=== PATIENT | male | born 1940 | race Caucasian/White ===

== ENCOUNTER 2018-09-26 14:28 | Inpatient (IN) | payer MEDICARE, OTHER ==
[~2018-09-26] VITALS: Ht 186.7 cm; Wt 103.4 kg
[~2018-09-26 14:28] MED LIST: ASPIRIN LOW DOS81 M2 PO; COUMADIN5 MG PO; LANOXIN0.25 MG PO; MEDDOSEPAK OR; METO50TA52 PO; NO MEDS; PRAVACHOL20 MG PO; VITAMIN B-12500 MCG PO
--- NOTE | 2018-09-26 14:56 | NUR ---
PT TO ROOM FOR EXAM
[2018-09-26 15:20] LABS: HEMATOCRIT 44.3 % (39.0-50.0); HEMOGLOBIN 14.8 g/dl (14.0-18.0); IMMATURE GRANULOCYTES 0.4 % (0.0-5.0); MEAN CELL VOLUME 99.3 fL CALC (80.0-100.0); MEAN CORPUSCULAR HGB 33.2 pG CALC (26.0-32.0); MEAN CORPUSCULAR HGB CONC 33.4 g/L CALC (32.0-36.0); NEUT# 7.82 thou/uL (1.82-7.42); RED BLOOD COUNT 4.46 mill/uL (4.70-6.10); RED CELL DISTRI WIDTH 13.4 % (11.5-15.5)
--- NOTE | 2018-09-26 15:34 | NUR ---
PT RESTING QUIETLY, TEMP REMAINS 101.0 NOTIFIED.
[2018-09-26 15:37] LABS: ALBUMIN 4.7 g/dL (3.2-5.0); ALKALINE PHOSPHATASE 48 u/l (38-126); ANION GAP 20 (6-22 (CALC)); BILIRUBIN, TOTAL 0.8 mg/dL (0.0-1.4); BUN 20 mg/dL (8-23); BUN/CREATININE RATIO 18 (12-20 (CALC)); CARBON DIOXIDE 21 mmol/l (22-30); CHLORIDE 103 mmol/l (95-108); CREATININE 1.2 mg/dL (0.7-1.3); GFR 59 ML/MIN (>=60 (CALC)); GFR FOR AFR.AMER. > 60 ML/MIN (>=60 (CALC)); POTASSIUM 4.8 mmol/l (3.5-5.1); SGOT/AST 27 u/l (19-48); SODIUM 138 mmol/l (137-146); TOTAL PROTEIN 7.5 g/dL (6.3-8.2)
--- NOTE | 2018-09-26 16:18 | NUR ---
ADVISED OF LACTIC ACID 4.3
--- NOTE | 2018-09-26 16:30 | NUR ---
PT SITTING UP ON STRETCHER, WITH FLUIDS INFUSING, AT BEDSIDE, CALL LIGHT WITHIN REACH,
[2018-09-26 16:56] LABS: INTERNATIONAL NORMALIZED RATIO 5.9 RATIO (0.7-1.3); PROTHROMBIN TIME 61.1 SECONDS (9.0-12.5)
--- NOTE | 2018-09-26 17:16 | NUR ---
TEMP DOWN TO 98.9 STATES FEELS MUCH BETTER.
[2018-09-26] MEDS ORDERED: GLYBURID MCR1.5 MG PO (17:42)
[2018-09-26] MEDS ORDERED: JANUMET1 TAB PO (17:42)
--- NOTE | 2018-09-26 17:54 | NUR ---
FLUIDS INFUSING PER PROTOCOL. PT STATES FEELS MUCH BETTER, WANTS TO GO HOME, NOTIFIED. DR. HILTON WILL BE SPEAKING WITH PT ABOUT ADMISSION
--- NOTE | 2018-09-26 18:22 | NUR ---
PT ARRIVED TO [facility]2 VIA STRETCHER ACCOMPANIED BY ER NURSE. PT ALERT AND ORIENTED X3, AMBULATORY, AMBULATED WELL WITH STEADY GAIT FROM STRETCHER TO STANDING SCALE THEN TO BED. ORIENTED PT TO ROOM AND CALL LIGHT. VITALS OBTAINED, OFFERED TEDS, PT REFUSED. CALL LIGHT IN REACH.
[2018-09-26 18:24] VITALS: BP 136/54
--- NOTE | 2018-09-26 18:28 | NUR ---
REPORT GIVEN TO MED SURG NURSE FOR CONTINUATION OF CARE. PT TO FLOOR PER STRETCHER WITH 3RD BAG OF FLUIDS INFUSING.
[2018-09-26 18:35] LABS: URINE BILIRUBIN - DIPSTICK NEGATIVE (NEGATIVE); URINE BLOOD DIPSTICK MODERATE (NEGATIVE); URINE COLOR YELLOW; URINE GLUCOSE - DIPSTICK NEGATIVE (NEGATIVE); URINE KETONE NEGATIVE (NEGATIVE); URINE LEUK ESTERASE NEGATIVE (NEGATIVE); URINE NITRITE - DIPSTICK NEGATIVE (Negative); URINE PROTEIN - DIPSTICK NEGATIVE (NEG-TRACE); URINE SPECIFIC GRAVITY >=1.030; URINE UROBILINOGEN - DIPSTICK 0.2 E.U./dL (0.2)
[2018-09-26 18:45] LABS: URINE SQUAMOUS EPITHELIAL CELL FEW EPI/hpf (0-FEW)
--- NOTE | 2018-09-26 19:00 | NUR ---
REPORT RECEIVED FROM FERMIN RODRIGUEZ. PT RESTING IN BED NO SIGNS OR SYMPTOMS OF DISTRESS. PT DENIES ANY PAIN OR DISCOMFORT AT THIS TIME. SAFETY PRECAUTIONS IN PLACE. WILL CONTINUE TO MONITOR.
[2018-09-26 19:35] VITALS: BP 127/64
--- NOTE | 2018-09-26 20:57 | NUR ---
PT RESTING IN BED. ALERT AND ORIENTED. PT DENIES ANY PAIN OR DISCOMFORT AT THIS TIME. RESPIRATIONS SHALLOW/LABORED ON RA, LUNGS SOUNDS DIMINISHED THROUGH OUT, EXPIRATORY WHEEZES NOTED IN UPPER RT LUNG. PEDAL PULSES STRONG. TELE MONITOR IN PLACE. IV #20 LAC INFUSINF NS @ 125ML/HR, SITE APPEARS HEALTHY. PT ORIENTED TO ROOM. PT DENIES ANY NEEDS AT THIS TIME. SAFETY PRECAUTIONS IN PLACE. CALL LIGHT WITHIN REACH. WILL CONTINUE TO MONITOR.
--- NOTE | 2018-09-26 22:22 | NUR ---
CLINICAL SUPPORT TEAM CALLED BY ED FOR HEART RATE OF 220. PT RESTING IN BED ALERT AND ORIENTED, SHORT OF BREATH. VITALS OBTAINED BP 196/78, PULSE 111, O2 88. PT DENIES ANY PAIN AT THIS TIME. O2 VIA NC @ 2L APPLIED.RT AT BEDSIDE OBTAINING EKG. MARTHA FIGUEROA RN, IN TO ASSESS PT FOR DIP TUBE ASSEMBLER MACHINE CALLED. MAG LEVEL ORDERED AT THIS TIME. WILL CALL MD FOR FURTHER ORDERS.
--- NOTE | 2018-09-26 22:30 | NUR ---
ATEMPTED TO CALL DR. VELEZ, NO ANSWER, LEFT A MESSAGE ON VOICEMAIL.
--- NOTE | 2018-09-26 22:41 | NUR ---
ATTEMPTED TO CALL DR. VELEZ AFTER 10 MINUTES OF NOT HEARING BACK FROM HIM, LEFT ANOTHER MESSAGE ON VOICE MAIL.
--- NOTE | 2018-09-26 23:18 | NUR ---
DR VELEZ RETURNED CALL. UPDATED MD ON PT STATUS. INFORMED MD OF LAST DOSE OF METOPROLOL SUCCINATE 50 MG/TAB, RESULTS OF EKG, COMMUNICATIONS AGENT CALLED, LAST SET OF VS, MAG RESULTS, PT SOB AND DENIES ANY PAIN, ORDERS RECEIVED TO TRANSFER PT TO ICU. DR. VELEZ CALL TRANSFERED TO ICU FOR FURTHER TRANSFER ORDERS.
[2018-09-26 23:35] VITALS: BP 148/62
[2018-09-26 23:45] VITALS: BP 156/73
[2018-09-27] VITALS (35 sets, daily range): BP systolic 91–175; BP diastolic 39–95
--- NOTE | 2018-09-27 00:04 | NUR ---
PT ARRIVED TO ICU UNIT AT 2330 VIA BED WITH 2 MEDSUR STAFF. IMMEDIATELY CONNECTED TO CONTINUOUS TELEMETRY MONITORING. VS RECOREDED. AFIB WITH RATE OF 101; TEMPERATURE AT 103.0. PT HAS FACIAL FLUSHING WITH SOB; LUNGS ARE CLEAR AND TRACE EDEMA TO BILATERAL ANKLES. DR. VELEZ NOTIFED OF PT CONDITION AT THIS TIME. NEW ORDERS RECEIVED. IV SITE TO LAC OCCLUDED AND 2 NEW SITES PLACED. PT DENIES PAIN CURRENTLY. ON OXYGEN AT 4L VIA NC; 95%. ORIENTED TO ROOM AND CALL LIGHT SYSTEM.
--- NOTE | 2018-09-27 00:10 | NUR ---
NURSE OFFERED TO NOTIFY ANY FAMILY OF TRANSPORT FROM [facility] TO ICU UNIT; PT STATES THAT HIS IS ALREADY AWARE AND UPDATED BY HIMSELF.
--- NOTE | 2018-09-27 01:04 | NUR ---
AMIODARONE BOLUS ADMINSTERED AND PT TOLERATED WELL; AMIODARONE DRIP NOW INFUSING AT 1MG/MIN. MAGNESIUM INFUSING PER ORDERS WITHOUT DIFFICULTY. TYLENOL GIVEN AND F/U TEMP IS 101.8; PT NOW DIAPHORETIC, BUT BREATHING HAS IMPROVED. CONTINUES TO DENY PAIN. DOES SEEM RESTLESS AND FREQUENTLY ATTEMPTING TO REPOSITION SELF ONTO SIDE OF BED, BUT TOO WEAK TO HOLD POSITION AND LAYS BACK DOWN INTO SEMI FOWLERS. CURRENTLY AFIB AT A RATE OF 103; WILL CONTINUE TO MONITOR.
--- NOTE | 2018-09-27 01:59 | NUR ---
MAGNESIUM COMPLETED AND IV SITE FLUSHED; BOTH SITES APPEAR HEALTHY. OXYGEN TITRATED DOWN TO 2L VIA NC AND CURRENTLY 95%. AMIODARONE DRIP INFUSING WITHOUT DIFFICULTY. TEMPERATURE 100.9. PT IS LESS RESTLESS; APPEARS MORE COMFORTABLE. NO REQUESTS OR CONCERS AT THIS TIME.
--- NOTE | 2018-09-27 04:59 | NUR ---
TYLENOL GIVEN AT THIS TIME FOR TEMPERATURE OF 101.7. NO REQUESTS OR CONCERNS AT THIS TIME. BP 121/61 HR 82; REMAINS AFIB.
--- NOTE | 2018-09-27 05:36 | NUR ---
PT FOUND AMBULATING IN ROOM WITH UNSTEADY GAIT AND IV LINES STRETCHED TAUNT AND IV SITE DISLODGED. PT STATES THAT HE WAS ATTEMPTING TO REACH BSC TO VOID; URINARY INCONTINENCE ON FLOOR. ASSISTED TO BSC, HYGEINE PROVIDED, AND LINENS CHANGED. DRIED FECES NOTED TO BUTTOCK. DRIP MOVED TO IV SITE IN LAC AND NOW INFUSING. PT ASSISTED BACK TO BED AND REORIENTED TO CALL LIGHT SYSTEM. STATES UNDERSTANDING.
--- NOTE | 2018-09-27 06:05 | NUR ---
LAB AT BEDSIDE.
--- NOTE | 2018-09-27 06:08 | NUR ---
TRANSPORTED TO CT VIA WHEELCHAIR; OFF UNIT.
[2018-09-27 06:10] LABS: IMMATURE GRANULOCYTES 0.4 % (0.0-5.0); MEAN CELL VOLUME 98.9 fL CALC (80.0-100.0); MEAN CORPUSCULAR HGB 33.9 pG CALC (26.0-32.0); MEAN CORPUSCULAR HGB CONC 34.2 g/L CALC (32.0-36.0); NEUT# 6.43 thou/uL (1.82-7.42); RED BLOOD COUNT 3.75 mill/uL (4.70-6.10); RED CELL DISTRI WIDTH 13.6 % (11.5-15.5)
[2018-09-27 06:14] LABS: HEMATOCRIT 37.1 % (39.0-50.0); HEMOGLOBIN 12.7 g/dl (14.0-18.0)
--- NOTE | 2018-09-27 06:15 | NUR ---
PT BACK TO UNIT AND RECONNECTED TO ALL ATTACHMENTS.
[2018-09-27 06:32] LABS: ALKALINE PHOSPHATASE 40 u/l (38-126); AMYLASE < 30 u/l (30-110); ANION GAP 13 (6-22 (CALC)); BILIRUBIN, TOTAL 0.9 mg/dL (0.0-1.4); BUN 15 mg/dL (8-23); BUN/CREATININE RATIO 17 (12-20 (CALC)); CARBON DIOXIDE 22 mmol/l (22-30); CHLORIDE 107 mmol/l (95-108); CREATININE 0.9 mg/dL (0.7-1.3); GFR > 60 ML/MIN (>=60 (CALC)); GFR FOR AFR.AMER. > 60 ML/MIN (>=60 (CALC)); LIPASE 255 u/l (23-300); SGOT/AST 20 u/l (19-48); SODIUM 137 mmol/l (137-146)
[2018-09-27 06:42] LABS: ALBUMIN 3.3 g/dL (3.2-5.0); MAGNESIUM 1.8 mg/dL (1.6-2.3); TOTAL PROTEIN 5.8 g/dL (6.3-8.2)
--- NOTE | 2018-09-27 06:55 | NUR ---
RECVD REPORT FROM CASSANDRA KUHN AT START OF SHIFT.
--- NOTE | 2018-09-27 06:55 | NUR ---
AMIODARONE DRIP TITRATED FROM 1.0 TO 0.5MG/MIN AFTER 6 HOURS. TEMPERATURE REMAINS 101.3. PT RESTING COMFORTABLY IN SEMI FOWLERS POSITION WITH NO NEEDS CURRENTLY.
--- NOTE | 2018-09-27 07:45 | NUR ---
PT SITTING UP IN BED, EATING BREAKFAST.
--- NOTE | 2018-09-27 08:00 | NUR ---
REQUESTED MOTRIN FROM [facility]SU, NOT IN ICU PYXIS
--- NOTE | 2018-09-27 08:27 | NUR ---
PT CURLED ON SIDE, "TRYING TO GO BACK TO SLEEP". BED ALARM ON.
--- NOTE | 2018-09-27 09:00 | NUR ---
TELE ALARMED FOR RR IN 70S-80S. PT WAS DIAPHORETIC, SWEAT DRIPPING OF PT. PT WOULD NOT WEAR OXI MASK. AFTER CONTINUED TACHYPNEA, PT PLACED ON NRB MASK. PTS RR SLOWED TO 30S.
--- NOTE | 2018-09-27 09:04 | NUR ---
KIMBERLY ARREOLA, NOTIFIED OF PTS STATUS. NEW ORDERS PLACED.
--- NOTE | 2018-09-27 09:13 | NUR ---
KIMBERLY ARREOLA, NOTIFIED OF EKG RESULTS OF AFIB RVR.
--- NOTE | 2018-09-27 09:18 | NUR ---
RT @BEDSIDE FOR JOANA
--- NOTE | 2018-09-27 09:20 | NUR ---
PORT XR COMPLETED.
--- NOTE | 2018-09-27 09:26 | NUR ---
LAB @BEDSIDE FOR STAT TROPONIN
[2018-09-27 10:00] LABS: INTERNATIONAL NORMALIZED RATIO 1.9 RATIO (0.7-1.3); PROTHROMBIN TIME 20.1 SECONDS (9.0-12.5)
--- NOTE | 2018-09-27 10:16 | NUR ---
TO ROOM, EMOTIONALLY UPSET BC NOONE NOTIFIED HER OF STATUS CHANGE.
--- NOTE | 2018-09-27 10:34 | NUR ---
EDUCATED & EDUCATED ON PTS STATUS. BROUGHT ACTUAL MED LIST, COPY MADE, CONSULT PLACED WITH PHARMACY.
[2018-09-27] MEDS ORDERED: LEVOTHYROXIN25 MC1 PO (10:51)
--- NOTE | 2018-09-27 11:44 | NUR ---
PT SITTING UP IN BED, EATING LUNCH. PT REMOVED FROM NRB, PLACED BACK ON 2L NC. ORDERED TRAY FOR @BEDSIDE.
--- NOTE | 2018-09-27 11:48 | NUR ---
DR VELEZ NOTIFIED OF EPISODE THIS AM WITH TACHYPENIA & DIAPHORESIS.
--- NOTE | 2018-09-27 11:59 | NUR ---
RBVO FROM DR VELEZ ON UNIT TO CANCEL LAST TROPONIN SINCE STAT DRAW EARLIER THIS AM.
--- NOTE | 2018-09-27 12:13 | NUR ---
DR VELEZ @BEDSIDE WITH PT/.
--- NOTE | 2018-09-27 12:56 | NUR ---
SPUTUM SAMPLE COLLECTED. LAB NOTIFIED FOR HAND FLESHER
--- NOTE | 2018-09-27 14:00 | NUR ---
PT SLEEPING IN BED. 94-95% ON 2L NC. NO S/S OF DISTRESS. CALLBELL W/IN REACH.
--- NOTE | 2018-09-27 16:17 | NUR ---
@BEDSIDE. PT TALKATIVE W/OUT SOB. AWAKE & ALERT. NO S/S OF DISTRESS.
--- NOTE | 2018-09-27 16:42 | NUR ---
PT SITTING UP IN BED, GIVING SELF BATH. IN ROOM. PT REFUSED HELP. ALSO BRUSHED TEETH & HAIR. LINENS & GOWN CHANGED. PT A&Ox4. AFEBRILE.
--- NOTE | 2018-09-27 17:42 | NUR ---
PT SITTING UP ON SIDE OF BED, EATING DINNER. REPOSITIONED SELF. @BEDSIDE. PT JOKING/LAUGHING WITH STAFF.
--- NOTE | 2018-09-27 18:31 | NUR ---
PT C/O CHILLS. TEMP TAKEN OR 98.9 TYM. MOTRIN GIVEN PRECAUTION.
--- NOTE | 2018-09-27 19:00 | NUR ---
BEDSIDE REPORT RECEIVED FROM CASSANDRA RUTLEDGE. PT RESTING IN BED SEMI FOWLERS; ALERT AND ORIENTED. DENIES PAIN. RESPIRATIONS EVEN AND UNLABORED ON OXYGEN. PLAN OF CARE REVIEWED. PT ENCOURAGED TO VERBALIZE CONCERNS. STATES UNDERSTANDING. SAFETY MEASURES IN PLACE. CALL LIGHT WITHIN REACH.
--- NOTE | 2018-09-27 19:45 | NUR ---
IV SITE TO LAC LEAKING; IV D/C'D AND NEW SITE PLACED TO RAC. LINENS CHANGED. ASSESSMENT COMPLETE.
--- NOTE | 2018-09-27 21:00 | NUR ---
PT HAS A NEED FOR SECOND LINE; IV ATTEMPTED BY 2 NURSES WITHOUT SUCCESS.
--- NOTE | 2018-09-27 21:48 | NUR ---
PT GOT OUT OF BED WITHOUT CALLING TO REACH URINAL WITH INSTEADY GAIT. URINAL PLACED WITHIN REACH AND PT EDUCATED ON SAFETY AND USING CALL LIGHT WHICH WAS WITHIN HIS REACH. PT STATES UNDERSTANDING. BED ALARM PLACED. ZITHROMAX INFUSING AT THIS TIME.
--- NOTE | 2018-09-27 22:24 | NUR ---
PT RESTING IN BED WITH EYES CLOSED; OPENS EYES SPONTANEOUSLY. TEMPERATURE AFTER TYLENOL 100.9. ROCEPHIN INFUSING AT THIS TIME.
--- NOTE | 2018-09-27 23:53 | NUR ---
TEMPERATURE 98.2; PT WITH WARM MOIST SKIN. VOIDING CLEAR YELLOW URINE IN BEDSIDE URINAL. AMIDARONE DRIP INFUSING WIHTOUT DIFFICULTY; IV SITE TO RAC APPEARS HEALTHY. AFIB WITH RATE OF 62 AT THIS TIME. SAFETY MEASURES IN PLACE. CALL LIGHT WITHIN REACH.
[2018-09-28] VITALS (23 sets, daily range): BP systolic 112–170; BP diastolic 24–96
--- NOTE | 2018-09-28 01:53 | NUR ---
PT ASLEEP AT THIS TIME WITH NO SIGNS OF DISTRESS. RESPIRATIONS EVEN AND UNLABORED ON OXYGEN. AMIODARONE DRIP DISCONTINUED PER PROTOCOL. PT AFIB RATE OF 74.
--- NOTE | 2018-09-28 04:11 | NUR ---
NO CHANGES IN CONDITION; PT IS STABLE AT THIS TIME. IV FLUIDS INFUSING WITHOUT DIFFICULTY. EXPIRATORY WHEEZES THROUGHOUT LUNGS; BREATHING SOUNDS WET. OXYGEN SATURATION 95% ON 2L OF OXYGEN. NO FURTHER ATTEMPTS TO GET OUT OF BED UNASSISTED.
--- NOTE | 2018-09-28 04:50 | NUR ---
LAB AT BEDSIDE.
[2018-09-28 05:20] LABS: HEMOGLOBIN 13.4 g/dl (14.0-18.0); IMMATURE GRANULOCYTES 0.7 % (0.0-5.0); MEAN CORPUSCULAR HGB 33.3 pG CALC (26.0-32.0); MEAN CORPUSCULAR HGB CONC 32.7 g/L CALC (32.0-36.0); NEUT# 5.16 thou/uL (1.82-7.42); RED BLOOD COUNT 4.02 mill/uL (4.70-6.10); RED CELL DISTRI WIDTH 13.9 % (11.5-15.5)
[2018-09-28 05:36] LABS: ALBUMIN 3.6 g/dL (3.2-5.0); ALKALINE PHOSPHATASE 42 u/l (38-126); ANION GAP 11 (6-22 (CALC)); BILIRUBIN, TOTAL 0.7 mg/dL (0.0-1.4); BUN 15 mg/dL (8-23); BUN/CREATININE RATIO 15 (12-20 (CALC)); CARBON DIOXIDE 26 mmol/l (22-30); CHLORIDE 109 mmol/l (95-108); GFR > 60 ML/MIN (>=60 (CALC)); GFR FOR AFR.AMER. > 60 ML/MIN (>=60 (CALC)); POTASSIUM 3.8 mmol/l (3.5-5.1); SGOT/AST 24 u/l (19-48); SODIUM 142 mmol/l (137-146); TOTAL PROTEIN 6.2 g/dL (6.3-8.2)
--- NOTE | 2018-09-28 06:28 | NUR ---
MOTRIN GIVEN WITH AM MEDS FOR TEMP OF 99.8.
--- NOTE | 2018-09-28 07:45 | NUR ---
ASSESSMENT IS COMPLETED: IV SITE IS FREE FROM REDNESS OR EDEMA. HR IS REG,PULSES ARE STRONG X4, ABD IS SOFT WITH ACTIVE BS. BREATH SOUNDS ARE CLEAR,BILATERALLY WITH EXPIRATORY WHEEZING. CONTINUE TO OBSERVE AND MONITOR,.
--- NOTE | 2018-09-28 11:44 | NUR ---
FAMILY IN THE ROOM. IV SITE IS FREE FROM REDNESS OR EDEMA. CONTINUE TO OSBERVE AND MONITOR.
--- NOTE | 2018-09-28 12:15 | NUR ---
PT IS VISITING WITH SPOUSE. NO DISTRESS NOTED. IV SITE IS FREE FROM REDNESS OR EDEMA. IN TO VISIT WITH PT. CONTINUE TO OSBERVE AND MONITOR.
--- NOTE | 2018-09-28 14:00 | NUR ---
PT WAS GETTING WASHED UP THIS AFTERNOON. NO DISTRESS NOTED.
--- NOTE | 2018-09-28 16:00 | NUR ---
PT IS VISITING WITH FAMILY NO DISTRESS NOTED., IV SITE IS FREE FROM REDNESS OR EDEMA. CONTINUE TO OBSERVE AND MONITOR.
--- NOTE | 2018-09-28 17:42 | NUR ---
WILL SEE PT TOMORROW.
--- NOTE | 2018-09-28 18:00 | NUR ---
PT IS RELAXING IN BED WITH NO DISTRESS NOTED. IV SITE IS FREE FROM REDNESS OR EDEMA.
--- NOTE | 2018-09-28 18:50 | NUR ---
BEDSIDE REPORT RECEIVED FROM FERMIN GARCÍA. PT RESTING IN BED SEMI FOWLERS WATCHING TV; ALERT AND ORIENTED. DENIES PAIN. RESPIRATIONS EVEN AND UNLABORED ON OXYGEN 2L VIA NC. PLAN OF CARE REVIEWED. PT ENCOURAGED TO VERBALIZE CONCERNS. STATES UNDERSTANDING. COMMENTED ON DESIRE TO GO HOME. SAFETY MEASURES IN PLACE. CALL LIGHT WITHIN REACH.
--- NOTE | 2018-09-28 19:20 | NUR ---
ASSESSMENT COMPLETE. LUNGS SOUNDS CLEAR WITH TRACE EDEMA TO BLE. ABDOMEN DISTENDED AND SOFT; REPORTS NO BOWEL MOVEMENT SINCE ADMISSION. VOIDING CLEAR YELLOW URINE IN URINAL.
--- NOTE | 2018-09-28 21:40 | NUR ---
HS MEDICATIONS ADMINISTERED. ROCEPHIN INFUSING WITHOUT DIFFICULTY; IV SITE APPEARS HEALTHY. BLOOD SUGAR 154; GLYNASE PO ADMINISTERED AND SNACK PROVIDED. PT HAS NO OTHER CONCERNS AT THIS TIME. AFEBRILE.
--- NOTE | 2018-09-28 23:00 | NUR ---
PT RESTING WITH EYES CLOSED; AWAKENS SPONTANEOUSLY. VERBALIZES CONCERNS ABOUT HIS COUMADIN DOSING; DISCUSSED WITH PT AND ANSWERED QUESTIONS TO SATISFACTION. NO OTHER REQUESTS OR CONCERNS AT THIS TIME.
[2018-09-29] VITALS (29 sets, daily range): BP systolic 125–174; BP diastolic 57–94
--- NOTE | 2018-09-29 01:00 | NUR ---
AFEBRILE TEMPERATURE 98.8. NO CHANGES IN CONDITION SO FAR THIS SHIFT. SAFETY MEASURES IN PLACE INCLUDING BED ALARM. CALL LIGHT WITHIN REACH.
--- NOTE | 2018-09-29 02:28 | NUR ---
PT REPOSITIONING SELF IN BED AND BLOWING NOSE; HEART INCREASED TO THE 130'S TEMPORARILY AND THEN DECREASED BACK INTO THE 90'S. PT IS SOB WITH OXYGEN IN PLACE. ENCOURAGED TO REST AND RELAX. HEART RATE CURRENTLY 86.
--- NOTE | 2018-09-29 04:09 | NUR ---
HEART RATE ON MONITOR UP TO 190'S; PT HAD JUST USED URINAL AND WAS TACHYPNEIC AND ANXIOUS. RELAXATION AND BREATHING TECHNIQUES ENCOURAGED. PT IS CALMER AND HEART RATE IS NOW IN THE 130'S AFIB. TEMPERATURE 100.9; WILL CONTINUE TO MONITOR.
--- NOTE | 2018-09-29 04:34 | NUR ---
TYLENOL GIVEN FOR TEMP OF 101.6. PT SITTING UP IN BED ANXIOUS WITH SOB; OXYGEN TITRATED TO 3L FOR COMFORT AND CONTINUING TO ENCOURAGE BREATHING TECHNIQUES. PT ASKING QUESTIONS ABOUT PLAN OF CARE; QUESTIONS ANSWERED TO SATISFACTION AND PT ENCOURAGED TO RELAX. HEART RATE CURRENTLY 120S-140'S. LUNG SOUNDS ARE CLEAR. WILL REASSESS.
--- NOTE | 2018-09-29 04:59 | NUR ---
AMIODARONE DRIP STARTED FOR SUSTAINED SYMPTOMATIC TACHYCARDIA AND RUNS OF VTACH. HEART RATE CURRENTLY IN THE 140'S UP TO THE 180'S. TEMPERATURE NOW 102.4 AFTER TYLENOL. PT IS VERY ANXIOUS AND STATES THAT HE FEELS CLAUSTROPHOBIC AND REQUESTS TO AMBULATE OUTSIDE OF ROOM. SKIN IS FLUSHED; HOT AND MOIST. BLOOD PRESSURE ALSO ELEVATED.
[2018-09-29 05:56] LABS: HEMATOCRIT 38.9 % (39.0-50.0); HEMOGLOBIN 13.2 g/dl (14.0-18.0); IMMATURE GRANULOCYTES 0.7 % (0.0-5.0); MEAN CELL VOLUME 100.5 fL CALC (80.0-100.0); MEAN CORPUSCULAR HGB 34.1 pG CALC (26.0-32.0); MEAN CORPUSCULAR HGB CONC 33.9 g/L CALC (32.0-36.0); NEUT# 5.94 thou/uL (1.82-7.42); RED BLOOD COUNT 3.87 mill/uL (4.70-6.10); RED CELL DISTRI WIDTH 13.5 % (11.5-15.5)
[2018-09-29 05:58] LABS: ALBUMIN 3.6 g/dL (3.2-5.0); ALKALINE PHOSPHATASE 58 u/l (38-126); ANION GAP 14 (6-22 (CALC)); BILIRUBIN, TOTAL 0.8 mg/dL (0.0-1.4); BUN 16 mg/dL (8-23); BUN/CREATININE RATIO 19 (12-20 (CALC)); CARBON DIOXIDE 21 mmol/l (22-30); CHLORIDE 109 mmol/l (95-108); CREATININE 0.9 mg/dL (0.7-1.3); GFR > 60 ML/MIN (>=60 (CALC)); GFR FOR AFR.AMER. > 60 ML/MIN (>=60 (CALC)); MAGNESIUM 1.8 mg/dL (1.6-2.3); SGOT/AST 30 u/l (19-48); SODIUM 140 mmol/l (137-146); TOTAL PROTEIN 6.4 g/dL (6.3-8.2)
--- NOTE | 2018-09-29 05:58 | NUR ---
PT VERY DIAPHORETC WITH WET GOWN AND LINEN; TEMP DOWN TO 101.0. LINENS CHANGED AND HYGEINE PROVIDED. PT MUCH CALMER NOW; SITTING UP IN BED ON CELL PHONE. STATES THAT HE JUST FEELS LOUSY. HEART RATE NOW 112; BLOOD PRESSURE IMPROVED.
--- NOTE | 2018-09-29 06:35 | NUR ---
PT RESPIRATIONS REMAIN ELEVATED AT 28 RPM AND SLIGHLY LABORED; CONTINUES ON 3L OF OXYGEN VIA NC. HEART RATE FLUXUATING BETWEEN 80'S AND 110'S AFIB.
[2018-09-29 07:01] LABS: INTERNATIONAL NORMALIZED RATIO 1.3 RATIO (0.7-1.3); PROTHROMBIN TIME 13.4 SECONDS (9.0-12.5)
--- NOTE | 2018-09-29 07:23 | NUR ---
awake in bed; no apparent distress noted; assessment completed at this time; pt alert and oriented; denies pain; no n/v/sob noted; resp even and unlabored; lungs coarse throughout; skin color wnl; o2 per nc; productive cough of brown/red sputum; hr irreg; strong pulses; no edema noted; afib on monitor; abd soft/ with bs present; no bm noted; pt denies bm X3 days; pt admits to voiding without complication; no urine to inspect at this time; #20 to rac patent with ivf infusing at 20cc/hr and amiodarone gtt infusing at 1mg/min; no redness or edema noted at site; plan of care/ am meds explained; call light within reach; will continue to monitor
--- NOTE | 2018-09-29 08:11 | NUR ---
GERARD Blount present at bedside to assess pt and discuss plan of care
--- NOTE | 2018-09-29 08:16 | NUR ---
awake in bed; offers no complaints; afib on monitor; EZEKIEL Blount at bedside; call light within reach; will continue to monitor
--- NOTE | 2018-09-29 10:12 | NUR ---
awake in bed; spouse present at bedside; pt offers no complaints; afib on monitor; iv patent; amiodarone gtt infusing per protocol; call light within reach; will continue to monitor
--- NOTE | 2018-09-29 10:36 | NUR ---
call placed to Dr France in regards to xray report; report reviewed; MD to place orders for discharge
--- NOTE | 2018-09-29 10:56 | NUR ---
call received from [facility] (Dr France office) in regards to nuc med stress test; stress test to be performed at office;
--- NOTE | 2018-09-29 11:13 | NUR ---
pt and family explained on plan of care; pt states she only have 1 or 2 pain pills left; pt aslo requesting anxiety medication in preparation for Sat; Dr France's office called per internal communications writer for prescriptions; spoke with Lisa; per Lisa hydrocodone was filled on 09/01/18 and xanax filled on 09/11; will continue to monitor
--- NOTE | 2018-09-29 11:24 | NUR ---
Dr Brownlee present at bedside to assess pt and discuss plan of care
--- NOTE | 2018-09-29 12:06 | NUR ---
awake in bed; spouse present at bedside; pt offers no complaints; iv intact and patent; amiodarone gtt at 0.5mg/min; afib on monitor; call light within reach; will continue to monitor
--- NOTE | 2018-09-29 13:20 | NUR ---
rvda master certified rv technician present at bedside
--- NOTE | 2018-09-29 14:09 | NUR ---
awake in bed; no apparent distress noted; pt offers no complaints; iv intact; amio gtt at 0.5mg/min; no redness or edema noted at site; afib on monitor; call light within reach; will continue to monitor
--- NOTE | 2018-09-29 16:25 | NUR ---
awake in bed; spouse present at bedside; no apparent distress noted; medicated with tylenol for fever; iv intact and patent; amiodarone gtt at 0.5mg/min; o2 per nc; afib on monitor; call light within reach; will continue to monitor
--- NOTE | 2018-09-29 17:25 | NUR ---
Dr Davis present at bedside to assess pt and discuss plan of care
--- NOTE | 2018-09-29 18:06 | NUR ---
awake in bed; spouse present at bedside; no apparent distress noted; pt offers no complaints; iv patent; amiodarone gtt infusing at 0.5mg/min; no redness or edema noted at site; afib on monitor; call light within reach;
--- NOTE | 2018-09-29 18:22 | NUR ---
[facility] Mal[facility] Singer called in regards to amiodarone po being profiled under incorrect MD
--- NOTE | 2018-09-29 18:50 | NUR ---
BEDSIDE REPORT RECEIVED FROM CASSANDRA RIVERO. PT RESTING IN BED SEMI FOWLERS; ALERT AND ORIENTED. DENIES PAIN. RESPIRATIONS EVEN AND UNLABORED ON OXYGEN 2L VIA NC. COOL CLOTH TO FOREHEAD; FACE SLIGHTLY FLUSHED. AMIODARONE INFUSING WITHOUT DIFFICULTY TO IV SITE TO RAC. PLAN OF CARE REVIEWED. PT ENCOURAGED TO VERBALIZE CONCERNS. STATES UNDERSTANDING. SAFETY MEASURES IN PLACE. CALL LIGHT WITHIN REACH.
--- NOTE | 2018-09-29 20:05 | NUR ---
NEW IV STARTED TO LAC TO INFUSE ABT; ZITHROMAX NOW INFUSING WITHOUT DIFFICULTY; IV SITE APPEARS HEALTHY.
--- NOTE | 2018-09-29 20:45 | NUR ---
PT STOOD UP TO GET AN OUT OF REACH ITEM AND ASSISTED SELF BACK INTO BED. PT BECAME VERY SOB WITH EXERTION, INCREASED FACIAL FLUSHING, AND HEART MORE ELEVATED IN THE 120S-130S. HS MEDICATIONS GIVEN INCLUDING PO AMIODARONE AND METOPROLOL. PT ENCOURAGED TO RELAX AND USE BREATHING TECHNIQUES. WILL CONTINUE TO MONTIOR.
--- NOTE | 2018-09-29 22:17 | NUR ---
HEART RATE NOW IN THE 70S AND 80S. TEMPERATURE DOWN TO 97.6 AND PT MORE RELAXED. ABT INFUSED AND IV SITE TO LAC NOW SALINE LOCKED AND FLUSHED. IV AMIODARONE CONTINUES TO INFUSE IN RAC. PT HAS NO REQUESTS OR CONCERNS AT THIS TIME.
[2018-09-30] VITALS (22 sets, daily range): BP systolic 116–163; BP diastolic 54–93
--- NOTE | 2018-09-30 00:06 | NUR ---
0XYGEN SATURATION BETWEEN 88-91%. OXYGEN TITRATED BACK UP TO 3L VIA NC.
--- NOTE | 2018-09-30 02:09 | NUR ---
PT AWAKE WATCHING TV; STATES THAT HE HAS BEEN SLEEPING ON AND OFF. DENIES PAIN. RESPIRATIONS EVEN AND UNLABORED ON 3L OF OXYGEN. NO REQUESTS OR COMPLAINTS AT THIS TIME. SAFETY MEASURES IN PLACE. CALL LIGHT WITHIN REACH.
--- NOTE | 2018-09-30 04:14 | NUR ---
NO ACUTE CHANGES IN CONDITION THROUGHOUT THE NIGHT.
--- NOTE | 2018-09-30 05:00 | NUR ---
AMIODARONE DRIP DISCONTINUED PER ORDERS.
[2018-09-30 05:31] LABS: HEMATOCRIT 41.4 % (39.0-50.0); HEMOGLOBIN 13.5 g/dl (14.0-18.0); IMMATURE GRANULOCYTES 0.5 % (0.0-5.0); MEAN CELL VOLUME 101.2 fL CALC (80.0-100.0); MEAN CORPUSCULAR HGB CONC 32.6 g/L CALC (32.0-36.0); NEUT# 4.28 thou/uL (1.82-7.42); RED BLOOD COUNT 4.09 mill/uL (4.70-6.10); RED CELL DISTRI WIDTH 13.5 % (11.5-15.5)
[2018-09-30 05:39] LABS: INTERNATIONAL NORMALIZED RATIO 1.3 RATIO (0.7-1.3); PROTHROMBIN TIME 13.5 SECONDS (9.0-12.5)
[2018-09-30 05:59] LABS: ALBUMIN 3.7 g/dL (3.2-5.0); ALKALINE PHOSPHATASE 73 u/l (38-126); ANION GAP 15 (6-22 (CALC)); BUN 17 mg/dL (8-23); BUN/CREATININE RATIO 21 (12-20 (CALC)); CARBON DIOXIDE 23 mmol/l (22-30); CHLORIDE 107 mmol/l (95-108); CREATININE 0.8 mg/dL (0.7-1.3); GFR > 60 ML/MIN (>=60 (CALC)); GFR FOR AFR.AMER. > 60 ML/MIN (>=60 (CALC)); MAGNESIUM 1.9 mg/dL (1.6-2.3); POTASSIUM 4.2 mmol/l (3.5-5.1); SODIUM 142 mmol/l (137-146); TOTAL PROTEIN 6.6 g/dL (6.3-8.2)
[2018-09-30 06:06] LABS: SGOT/AST 55 u/l (19-48)
--- NOTE | 2018-09-30 06:38 | NUR ---
PT RESTING COMFORTABLY IN SEMI FOWLERS WATCHING TV. 0600 MEDICATIONS GIVEN. NO OTHER REQUESTS AT THIS TIME.
--- NOTE | 2018-09-30 07:15 | NUR ---
pt awake in bed; no apparent distress noted; pt offers no complaints; assessment completed at this time; pt alert and oriented; denies pain; no n/v noted; resp even and unlabored; lungs coarse throughout; skin color wnl; o2 per nc at 2.5l; prod cough of yandy sputum; hr irreg; strong pulses; trace ankle edema noted; afib on monitor; abd soft with bs present; no bm noted per curriculum writer; no urine to inspect at this time; urinal at bedside; #20 flushed and patent to lac; #20 patent to rac with ivf infusing without complication; no redness or edema noted at sites; plan of care/ am meds explained; call light within reach; will continue to monitor
--- NOTE | 2018-09-30 08:04 | NUR ---
awake in bed; no apparent distress noted; pt offers no complaints; afib on monitor; iv intact; call light within reach; will continue to monitor
--- NOTE | 2018-09-30 10:08 | NUR ---
awake in bed; no apparent distress noted; pt offers no complaints; iv intact with ivf infusing without complication; no redness or edema noted at site; afib on monitor; call light within reach; will continue to monitor
--- NOTE | 2018-09-30 10:54 | NUR ---
Dr Brownlee present at bedside to assess pt and discuss plan of care
--- NOTE | 2018-09-30 11:15 | NUR ---
pt bath self with assistance of ; up to chair; monitoring attachments reapplied; will continue to monitor
--- NOTE | 2018-09-30 12:05 | NUR ---
awake; up to chair eating lunch; no apparent distress noted; pt offers no complaints; o2 per nc; spouse at bedside; iv intact; call light within reach; will continue to monitor
--- NOTE | 2018-09-30 12:45 | NUR ---
GERARD Blount present at bedside
--- NOTE | 2018-09-30 14:00 | NUR ---
resting in bed with eyes closed; easily aroused; offers no complaints; o2 per nc; afib/flutter on monitor; rate controlled; call light within reach; will continue to monitor
--- NOTE | 2018-09-30 16:00 | NUR ---
resting in bed with eyes closed; afib on monitor; o2 per nc; spouse present at bedside; call light within reach; will continue to monitor
--- NOTE | 2018-09-30 18:10 | NUR ---
awake in bed; spouse present at bedside; no apparent distress noted; pt offers no complaints; spouse at bedside; afib on monitor; o2 per nc; call light within reach
--- NOTE | 2018-09-30 19:28 | NUR ---
BEDSIDE REPORT RECEIVED FROM CASSANDRA RIVERO. PT RESTING IN BED SEMI FOWLERS; ALERT AND ORIENTED. DENIES PAIN. RESPIRATIONS EVEN AND UNLABORED ON OXYGEN 3. SAFETY MEASURES IN PLACE. CALL LIGHT WITHIN REACH.
--- NOTE | 2018-09-30 20:30 | NUR ---
UP TO BSC FOR SMALL HARD BOWEL MOVEMENT. TOLDERATED WELL WITH ONLY MILD SOB.
--- NOTE | 2018-09-30 21:46 | NUR ---
ROCEPHIN COMPLETED AT THIS TIME AND HS MEDICATIONS ADMINISTERED. BLADDER SCANNED PT DUE TO SMALL AMOUNTS OF URINE SINCE ADMISSION AND DARKENING IN COLOR. BLADDER SCAN REPORTS 87 AND 107ML PVR. PO INTAKE ENCOURAGED.
[2018-10-01] VITALS (7 sets, daily range): BP systolic 134–152; BP diastolic 68–81
--- NOTE | 2018-10-01 00:12 | NUR ---
PT RESTING IN BED SEMI FOWLERS WITH EYES CLOSED; AWAKENS SPONTANEOUSLY. RESPIRATIONS EVEN AND UNLABORED AND NO SIGNS OF DISTRESS. AFEBRILE. NO REQUESTS OR CONCERNS AT THIS TIME.
--- NOTE | 2018-10-01 02:25 | NUR ---
AWAKE USING URINAL. NO NEEDS AT THIS TIME. AFIB WITH RATE OF 69.
--- NOTE | 2018-10-01 04:05 | NUR ---
AFEBRILE. BOTH IV SITES APPEAR HEALTHY AND FLUSH. PT USING URINAL TO VOID IN SMALL AMOUNTS. USES CALL LIGHT PRN FOR ASSISTANCE. SAFETY MEASURES IN PLACE. CALL LIGHT WITHIN REACH.
--- NOTE | 2018-10-01 04:41 | NUR ---
LAB AT BEDSIDE.
[2018-10-01 04:52] LABS: HEMATOCRIT 37.4 % (39.0-50.0); HEMOGLOBIN 12.5 g/dl (14.0-18.0); IMMATURE GRANULOCYTES 0.8 % (0.0-5.0); MEAN CELL VOLUME 100.3 fL CALC (80.0-100.0); MEAN CORPUSCULAR HGB 33.5 pG CALC (26.0-32.0); MEAN CORPUSCULAR HGB CONC 33.4 g/L CALC (32.0-36.0); NEUT# 3.62 thou/uL (1.82-7.42); RED BLOOD COUNT 3.73 mill/uL (4.70-6.10); RED CELL DISTRI WIDTH 13.6 % (11.5-15.5)
[2018-10-01 05:10] LABS: ALBUMIN 3.4 g/dL (3.2-5.0); ALKALINE PHOSPHATASE 75 u/l (38-126); ANION GAP 13 (6-22 (CALC)); BILIRUBIN, TOTAL 0.7 mg/dL (0.0-1.4); BUN 17 mg/dL (8-23); BUN/CREATININE RATIO 19 (12-20 (CALC)); CARBON DIOXIDE 26 mmol/l (22-30); CHLORIDE 107 mmol/l (95-108); CREATININE 0.9 mg/dL (0.7-1.3); GFR > 60 ML/MIN (>=60 (CALC)); GFR FOR AFR.AMER. > 60 ML/MIN (>=60 (CALC)); MAGNESIUM 1.9 mg/dL (1.6-2.3); POTASSIUM 4.1 mmol/l (3.5-5.1); SGOT/AST 61 u/l (19-48); SODIUM 142 mmol/l (137-146); TOTAL PROTEIN 6.2 g/dL (6.3-8.2)
[2018-10-01 05:11] LABS: PROTHROMBIN TIME 17.4 SECONDS (9.0-12.5)
[2018-10-01 05:13] LABS: INTERNATIONAL NORMALIZED RATIO 1.7 RATIO (0.7-1.3)
--- NOTE | 2018-10-01 06:15 | NUR ---
PT CONTINUES TO DENY PAIN. ASKING ABOUT PLAN FOR THE DAY; QUESTIONS ANSWERED TO SATISFACTION. CALL LIGHT WITHIN REACH.
--- NOTE | 2018-10-01 07:15 | NUR ---
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
--- NOTE | 2018-10-01 08:15 | NUR ---
awake in bed; offers no complaints; o2 per nc; iv's intact; afib on monitor; urinal at bedside; call light within reach; will continue to monitor
--- NOTE | 2018-10-01 10:05 | NUR ---
awake in bed; spouse at bedside; no apparent distress noted; o2 per nc; afib on monitor; call light within reach; will continue to monitor
--- NOTE | 2018-10-01 12:02 | NUR ---
awake in bed; no apparent distress noted; o2 per nc; spouse at bedside; afib on monitor; iv intact; call light within reach; will continue to monitor
--- NOTE | 2018-10-01 12:15 | NUR ---
Dr Brownlee present at bedside to assess pt and discuss plan of care
[2018-10-01] MEDS ORDERED: DOXYCYCL HYC100 MG PO (12:40)
--- NOTE | 2018-10-01 12:57 | NUR ---
Dr Brownlee called per chief underwriter; informed Amiodarone was not ordered for discharge; orders received to notify Kym Blount NP to order/send in script
--- NOTE | 2018-10-01 13:15 | NUR ---
call received from Kym Blount NP; Rx for amiodarone to be sent to [facility]; pt to have blood work done prior to appt
--- NOTE | 2018-10-01 13:25 | NUR ---
Educated patient that the Amiodarone he is being discharged with can increase his risk of bleeding with the Warfarin he takes at home. Patient gets INR checked every month through his PCP. Counseled on signs and symptoms of bleeding to watch out for and how to keep vitamin K intake consistent to prevent unwanted bleed/ clot risk. Patient and acknowledged and thanked staff for education.
--- NOTE | 2018-10-01 13:51 | NUR ---
discharge instructions reviewed in great detail with pt and spouse; demonstration provided on checking radial pulse; pt able to demonstrate correctly; pt and spouse encouraged to obtained bp monitoring device;
--- NOTE | 2018-10-01 13:53 | NUR ---
Discharge instructions given. Patient verbalizes understanding of same. Discharged in stable condition via Wheelchair to Home with spouse. All belongings sent with pt.
== END 2018-10-01 13:53 | disposition home or self-care (01) | DRG 194 ==
LOC: ED 14:28 → ED-I 17:22 → ED 17:48 → MS2 17:49 → ICU 17:49
PROVIDERS: Emergency Medicine; Nurse Practitioner Family; ADMIT Internal Medicine Nephrology; ATTEND Internal Medicine Nephrology
DX: J18.9 Pneumonia, unspecified organism (principal); J44.0 Chronic obstructive pulmonary disease with (acute) lower respiratory infection; I48.92 Unspecified atrial flutter; I47.2 Ventricular tachycardia; R04.2 Hemoptysis; I48.2 Chronic atrial fibrillation; I10 Essential (primary) hypertension; E11.9 Type 2 diabetes mellitus without complications; E78.5 Hyperlipidemia, unspecified; R09.02 Hypoxemia; D51.3 Other dietary vitamin B12 deficiency anemia; E03.9 Hypothyroidism, unspecified; R79.1 Abnormal coagulation profile; T45.515A Adverse effect of anticoagulants, initial encounter; Z79.01 Long term (current) use of anticoagulants
CPT/HCPCS: J0282

== ENCOUNTER 2021-02-25 22:40 | Emergency (ER) | payer MEDICARE, OTHER ==
[~2021-02-25 22:40] MED LIST changes: +DOXYCYCL HYC100 MG PO; +GLYBURID MCR1.5 MG PO; +JANUMET1 TAB PO; +LEVOTHYROXIN25 MC1 PO
[2021-02-25 23:43] LABS: HEMATOCRIT 41.2 % (39.0-50.0); HEMOGLOBIN 13.9 g/dl (14.0-18.0); IMMATURE GRANULOCYTES 0.5 % (0.0-5.0); MEAN CELL VOLUME 97.6 fL CALC (80.0-100.0); MEAN CORPUSCULAR HGB 32.9 pG CALC (26.0-32.0); MEAN CORPUSCULAR HGB CONC 33.7 g/dL CAL (32.0-36.0); NEUT# 1.92 thou/uL (1.82-7.42); RED BLOOD COUNT 4.22 mill/uL (4.70-6.10); RED CELL DISTRI WIDTH 13.3 % (11.5-15.5)
[2021-02-25 23:53] LABS: URINE BILIRUBIN - DIPSTICK NEGATIVE (NEGATIVE); URINE BLOOD DIPSTICK SMALL (NEGATIVE); URINE COLOR YELLOW; URINE GLUCOSE - DIPSTICK NEGATIVE (NEGATIVE); URINE KETONE NEGATIVE (NEGATIVE); URINE PH 5.5 (4.5-8.0); URINE PROTEIN - DIPSTICK TRACE mg/dL (NEG-TRACE); URINE SPECIFIC GRAVITY 1.025; URINE UROBILINOGEN - DIPSTICK 0.2 E.U./dL (0.2)
[2021-02-26] LABS: URINE LEUK ESTERASE NEGATIVE (NEGATIVE); URINE NITRITE - DIPSTICK NEGATIVE (Negative)
[2021-02-26 00:01] LABS: URINE BACTERIA FEW hpf; URINE EPITHELIAL CELLS MODERATE EPI/hpf (0-FEW); URINE WBC 0-2 WBC/hpf (0-5)
[2021-02-26 00:02] LABS: URINE FINE GRAN CAST FEW lpf
[2021-02-26 00:05] LABS: ALBUMIN 3.9 g/dL (3.2-5.0); ALKALINE PHOSPHATASE 51 u/l (38-126); ANION GAP 13 (6-22 (CALC)); BUN 21 mg/dL (8-23); BUN/CREATININE RATIO 18 (12-20 (CALC)); CARBON DIOXIDE 25 mmol/l (22-30); CHLORIDE 102 mmol/l (95-108); CREATININE 1.2 mg/dL (0.7-1.3); GFR 59 ML/MIN (>=60 (CALC)); GFR FOR AFR.AMER. > 60 ML/MIN (>=60 (CALC)); POTASSIUM 4.1 mmol/l (3.5-5.1); SGOT/AST 29 u/l (19-48); SODIUM 136 mmol/l (137-146)
[2021-02-26 00:18] LABS: BILIRUBIN, TOTAL 0.3 mg/dL (0.0-1.4)
[2021-02-26] MEDS ORDERED: DEXAMETHASON6 MG PO (00:28)
[2021-02-26] MEDS ORDERED: ZITHROMAX250 MG PO (00:28)
[2021-02-26] MEDS ORDERED: JANUMET1 TA1 PO (00:53)
[2021-02-26] MEDS ORDERED: WARFARIN7.5 MG PO (00:56)
[2021-02-26] MEDS ORDERED: WARFARIN5 MG PO (00:57)
[2021-02-26] MEDS ORDERED: AMIODARONE200 MG PO (00:59)
[2021-02-26 02:07] VITALS: BP 119/46
== END 2021-02-26 02:07 | disposition home or self-care (01) ==
LOC: ED 22:40
PROVIDERS: Emergency Medicine
DX: U07.1 COVID-19 (principal); E11.9 Type 2 diabetes mellitus without complications; I48.91 Unspecified atrial fibrillation; E78.5 Hyperlipidemia, unspecified; Z79.84 Long term (current) use of oral hypoglycemic drugs

== ENCOUNTER 2021-03-02 17:06 | Emergency (ER) | payer MEDICARE, OTHER ==
[~2021-03-02 17:06] MED LIST changes: +AMIODARONE200 MG PO; +DEXAMETHASON6 MG PO; +JANUMET1 TA1 PO; +WARFARIN5 MG PO; +WARFARIN7.5 MG PO; +ZITHROMAX250 MG PO
[2021-03-02 19:03] LABS: HEMATOCRIT 41.7 % (39.0-50.0); HEMOGLOBIN 14.1 g/dl (14.0-18.0); IMMATURE GRANULOCYTES 0.7 % (0.0-5.0); MEAN CELL VOLUME 94.6 fL CALC (80.0-100.0); MEAN CORPUSCULAR HGB CONC 33.8 g/dL CAL (32.0-36.0); NEUT# 5.51 thou/uL (1.82-7.42); RED BLOOD COUNT 4.41 mill/uL (4.70-6.10); RED CELL DISTRI WIDTH 12.9 % (11.5-15.5)
[2021-03-02 19:19] LABS: ALBUMIN 3.9 g/dL (3.2-5.0); ALKALINE PHOSPHATASE 52 u/l (38-126); ANION GAP 14 (6-22 (CALC)); BUN 24 mg/dL (8-23); BUN/CREATININE RATIO 26 (12-20 (CALC)); CARBON DIOXIDE 24 mmol/l (22-30); CHLORIDE 99 mmol/l (95-108); CREATININE 0.9 mg/dL (0.7-1.3); GFR > 60 ML/MIN (>=60 (CALC)); GFR FOR AFR.AMER. > 60 ML/MIN (>=60 (CALC)); SGOT/AST 34 u/l (19-48); SODIUM 133 mmol/l (137-146); TOTAL PROTEIN 7.4 g/dL (6.3-8.2)
[2021-03-02 19:23] LABS: BILIRUBIN, TOTAL 0.5 mg/dL (0.0-1.4)
[2021-03-02 19:30] LABS: MYOGLOBIN 65 ng/mL (0 - 121)
[2021-03-02 20:56] LABS: ACT PARTIAL THROMBO TIME 35.7 SECONDS (20.0-32.5)
[2021-03-02 20:57] LABS: INTERNATIONAL NORMALIZED RATIO 2.8 RATIO (0.7-1.3); PROTHROMBIN TIME 27.7 SECONDS (9.0-12.5)
[2021-03-02 21:12] LABS: URINE BILIRUBIN - DIPSTICK NEGATIVE (NEGATIVE); URINE BLOOD DIPSTICK TRACE-INTACT (NEGATIVE); URINE COLOR YELLOW; URINE GLUCOSE - DIPSTICK 100 mg/dL (NEGATIVE); URINE KETONE NEGATIVE (NEGATIVE); URINE LEUK ESTERASE NEGATIVE (NEGATIVE); URINE PH 5.5 (4.5-8.0); URINE PROTEIN - DIPSTICK TRACE mg/dL (NEG-TRACE); URINE UROBILINOGEN - DIPSTICK 0.2 E.U./dL (0.2)
[2021-03-02 21:13] LABS: URINE NITRITE - DIPSTICK NEGATIVE (Negative)
[2021-03-02 21:47] VITALS: BP 160/78
== END 2021-03-02 21:47 | disposition home or self-care (01) ==
LOC: ED 17:06
PROVIDERS: Emergency Medicine; Family Medicine
DX: R41.82 Altered mental status, unspecified (principal); E87.1 Hypo-osmolality and hyponatremia; U07.1 COVID-19; I10 Essential (primary) hypertension; E11.9 Type 2 diabetes mellitus without complications; E78.5 Hyperlipidemia, unspecified; I48.91 Unspecified atrial fibrillation; Z79.84 Long term (current) use of oral hypoglycemic drugs

== ENCOUNTER 2021-03-04 12:27 | Inpatient (IN) | payer MEDICARE, OTHER ==
[~2021-03-04] VITALS: Ht 185.4 cm; Wt 95.0 kg
--- NOTE | 2021-03-04 12:35 | NUR ---
PATIENT TO ROOM VIA WHEELCHAIR AND PHYSICIAN NOTIFED OF PAT[place]LLON STATUS
[2021-03-04 13:14] LABS: HEMATOCRIT 41.5 % (39.0-50.0); HEMOGLOBIN 13.9 g/dl (14.0-18.0); IMMATURE GRANULOCYTES 0.9 % (0.0-5.0); MEAN CELL VOLUME 97.4 fL CALC (80.0-100.0); MEAN CORPUSCULAR HGB 32.6 pG CALC (26.0-32.0); MEAN CORPUSCULAR HGB CONC 33.5 g/dL CAL (32.0-36.0); NEUT# 4.27 thou/uL (1.82-7.42); RED BLOOD COUNT 4.26 mill/uL (4.70-6.10); RED CELL DISTRI WIDTH 13.2 % (11.5-15.5)
[2021-03-04 13:34] LABS: ALBUMIN 3.6 g/dL (3.2-5.0); ALKALINE PHOSPHATASE 51 u/l (38-126); ANION GAP 13 (6-22 (CALC)); BILIRUBIN, TOTAL 0.5 mg/dL (0.0-1.4); BUN 20 mg/dL (8-23); BUN/CREATININE RATIO 20 (12-20 (CALC)); CARBON DIOXIDE 24 mmol/l (22-30); CHLORIDE 103 mmol/l (95-108); GFR > 60 ML/MIN (>=60 (CALC)); GFR FOR AFR.AMER. > 60 ML/MIN (>=60 (CALC)); LIPASE 165 u/l (23-300); POTASSIUM 4.2 mmol/l (3.5-5.1); SGOT/AST 40 u/l (19-48); SODIUM 136 mmol/l (137-146); TOTAL PROTEIN 6.8 g/dL (6.3-8.2)
--- NOTE | 2021-03-04 13:40 | NUR ---
PT RESTING IN BED AWAITING RESULTS
[2021-03-04 13:42] LABS: D-DIMER 0.65 mg/L (0.19-0.60)
[2021-03-04 14:02] LABS: ACT PARTIAL THROMBO TIME 36.8 SECONDS (20.0-32.5); INTERNATIONAL NORMALIZED RATIO 3.1 RATIO (0.7-1.3); PROTHROMBIN TIME 30.5 SECONDS (9.0-12.5)
--- NOTE | 2021-03-04 14:30 | NUR ---
PT AWAITING BED ASSIGNMENT
--- NOTE | 2021-03-04 15:20 | NUR ---
PT WHEELED TO THE FLOOR VIA WHEELCHAIR, NO COMPLAINTS, OXYGEN ON PT, VSS
[2021-03-04 15:40] VITALS: BP 161/73
[2021-03-04 19:00] VITALS: BP 157/82
[2021-03-05] VITALS (10 sets, daily range): BP systolic 133–192; BP diastolic 60–79
[2021-03-05 05:13] LABS: HEMATOCRIT 37.1 % (39.0-50.0); HEMOGLOBIN 12.7 g/dl (14.0-18.0); IMMATURE GRANULOCYTES 0.6 % (0.0-5.0); MEAN CELL VOLUME 95.6 fL CALC (80.0-100.0); MEAN CORPUSCULAR HGB 32.7 pG CALC (26.0-32.0); MEAN CORPUSCULAR HGB CONC 34.2 g/dL CAL (32.0-36.0); NEUT# 2.2 thou/uL (1.82-7.42); RED BLOOD COUNT 3.88 mill/uL (4.70-6.10); RED CELL DISTRI WIDTH 13.2 % (11.5-15.5)
[2021-03-05 05:30] LABS: ALKALINE PHOSPHATASE 48 u/l (38-126); ANION GAP 11 (6-22 (CALC)); BILIRUBIN, TOTAL 0.3 mg/dL (0.0-1.4); BUN 22 mg/dL (8-23); BUN/CREATININE RATIO 29 (12-20 (CALC)); C-REACTIVE PROTEIN 8.6 mg/dL (0-0.9); CARBON DIOXIDE 23 mmol/l (22-30); CHLORIDE 108 mmol/l (95-108); CREATININE 0.8 mg/dL (0.7-1.3); GFR > 60 ML/MIN (>=60 (CALC)); GFR FOR AFR.AMER. > 60 ML/MIN (>=60 (CALC)); POTASSIUM 4.4 mmol/l (3.5-5.1); SGOT/AST 33 u/l (19-48); SODIUM 138 mmol/l (137-146); TOTAL PROTEIN 5.5 g/dL (6.3-8.2)
[2021-03-05 05:33] LABS: ALBUMIN 2.8 g/dL (3.2-5.0)
--- NOTE | 2021-03-05 07:00 | NUR ---
REPORT RECEIVED FROM SARARN
--- NOTE | 2021-03-05 08:45 | NUR ---
PT RESTING IN SEMI FOWLERS POSITION,A&O X3;VS OBTAINED AND ASSESSMENT COMPLETED;PT DENIES ANY CURRENT PAIN OR DISCOMFORTS,PAIN SCALE AND REPORTING EDUCATED;RESPIRATIONS EVEN AND UNLABORED ON O2 @ 2L VIA NC,CLEAR/DIMINISHED LUNG SOUNDS NOTED;ABDOMEN SOFT ON PALPATION AND ACTIVE IN ALL 4 QUADRANTS;WEAK PEDAL PULSES;SKIN INTACT;TELE MONITORING IN PLACE;#20G TO LAC INFUSING NS @ 100ML/HR PER ORDER,SITE APPEARS HEALTHY;ACCUCHECK 295, PT COVERED WITH SLIDING SCALE INSULIN PER ORDER;ALL SAFETY PRECAUTIONS REMAIN IN PLACE WITH BED IN THE LOWEST POSITION AND CALL LIGHT IN REACH;WILL CONTINUE TO MONITOR
--- NOTE | 2021-03-05 11:37 | NUR ---
PT TRANSPORTED TO [facility] IN STABLE CONDITION VIA WC ACCOMPANIED BY RONAK SOSA
--- NOTE | 2021-03-05 12:14 | NUR ---
PT RETURNED BACK TO MED/SURG ROOM 290 IN STABLE CONDITION.
--- NOTE | 2021-03-05 12:15 | NUR ---
PT RE-POSITIONED INTO BED;RESPIRATIONS REMAIN EVEN AND UNLABORED ON O2 @ 2L VIA NC;PT DENIES ANY CURRENT PAIN OR NEEDS;IV SITE PATENT TO LAC AND IV FLUIDS INFUSING PER ORDER;SECOND IV SITE STARTED BY RADIOLOGY #20G TO RAC;TELE MONITORING IN PLACE;ACCUCHECK 295, PT COVERED WITH SLIDING SCALE INSULIN PER ORDER;ALL SAFETY PRECAUTIONS REMAIN IN PLACE WITH CALL LIGHT IN REACH;WILL CONTINUE TO MONITOR
--- NOTE | 2021-03-05 16:05 | NUR ---
PT RESTING IN SEMI FOWLERS POSITION;RESPIRATIONS EVEN AND UNLABORED ON O2 @ 2L VIA NC;PT REQUESTS COUGH MEDICATION, PT MEDICATED WITH ROBITUSSIN AC PER REQUEST;IV SITE X2 PATENT AND ABX HUNG AT THIS TIME;TELE MONITORING IN PLACE;ACCUCHECK 279, PT COVERED WITH SLIDING SCALE INSULIN PER ORDER;ALL SAFETY PRECAUTIONS REMAIN IN PLACE WITH CALL LIGHT IN REACH;WILL CONTINUE TO MONITOR
--- NOTE | 2021-03-05 16:56 | NUR ---
BP 192/76 HR 71,PT ASYPTOMATIC. NOTIFIED AND NEW ORDERS TO BE PLACED PER MD;WILL CONTINUE TO MONITOR
--- NOTE | 2021-03-05 17:33 | NUR ---
PT MEDICATED WITH PRN APRESOLINE 10MG SLOW IVP FOR ELEVATED BP BY CASSANDRA STORY.WILL CONTINUE TO MONITOR FOR EFFECTIVENESS
--- NOTE | 2021-03-05 17:34 | NUR ---
PT MEDICATED WITH HYDRALAZINE 10MG IVP PER MAR FOR BP 192/76
--- NOTE | 2021-03-05 18:00 | NUR ---
BP RE-CHECK 170/76 HR 75, PT REMAINS AYSMPTOMATIC AT THIS TIME;WILL RE-ASSESS.WILL CONTINUE TO MONITOR
--- NOTE | 2021-03-05 18:40 | NUR ---
REPEAT BP 152/73
--- NOTE | 2021-03-05 20:30 | NUR ---
PATIENT IS ALERT AND ORIENTED X3. ABLE TO MAKE NEEDS KNOWN. RESPIRATIONS UNLABORED. O2 2L N/C IN PLACE. ON TELEMETRY A-FIB. DENEIS PAIN. NO COMPLAINTS. ASSESSMENT COMPLETED AND CHARTED. BED IN LOW POSITION. CALL LIGHT WITHIN REACH.
[2021-03-06] VITALS (8 sets, daily range): BP systolic 155–183; BP diastolic 73–94
--- NOTE | 2021-03-06 00:55 | NUR ---
NOTIFED PROVIDER OF EVENING GLUCOSE. NEW ORDERS RECEIVED. LEMEMIR 15 UNITS SC GIVEN. BLOOD SUGAR CHECKED AT THIS TIME WAS 321.
--- NOTE | 2021-03-06 04:28 | NUR ---
PATIENT RESTING QUIETLY. VIBRIMYCIN IV INFUSING ORDERED. NO COMPLAINTS VERBALIZED. BED IN LOW POSITION. CALL LIGHT WITHIN REACH.
[2021-03-06 06:28] LABS: ALBUMIN 2.9 g/dL (3.2-5.0); ALKALINE PHOSPHATASE 49 u/l (38-126); ANION GAP 12 (6-22 (CALC)); BILIRUBIN, TOTAL 0.4 mg/dL (0.0-1.4); BUN 28 mg/dL (8-23); BUN/CREATININE RATIO 30 (12-20 (CALC)); CARBON DIOXIDE 27 mmol/l (22-30); CHLORIDE 105 mmol/l (95-108); CREATININE 0.9 mg/dL (0.7-1.3); GFR > 60 ML/MIN (>=60 (CALC)); GFR FOR AFR.AMER. > 60 ML/MIN (>=60 (CALC)); POTASSIUM 3.7 mmol/l (3.5-5.1); SGOT/AST 31 u/l (19-48); SODIUM 140 mmol/l (137-146); TOTAL PROTEIN 5.8 g/dL (6.3-8.2)
[2021-03-06 06:34] LABS: IMMATURE GRANULOCYTES 0.6 % (0.0-5.0); MEAN CELL VOLUME 95.7 fL CALC (80.0-100.0); MEAN CORPUSCULAR HGB 32.7 pG CALC (26.0-32.0); MEAN CORPUSCULAR HGB CONC 34.2 g/dL CAL (32.0-36.0); NEUT# 3.74 thou/uL (1.82-7.42); RED BLOOD COUNT 3.97 mill/uL (4.70-6.10); RED CELL DISTRI WIDTH 12.9 % (11.5-15.5)
--- NOTE | 2021-03-06 07:02 | NUR ---
REPORT RECEIVED FROM ELIZARN
--- NOTE | 2021-03-06 08:25 | NUR ---
PT RESTING IN SEMI FOWLERS POSITION,A&O X3;VS OBTAINED AND ASSESSMENT COMPLETED, BP ELEVATED AT 172/82 HR 109.ALL MORNING MEDICATION TO BE ADMINISTRATED AT THIS TIME;PT DENIES ANY CURRENT PAIN OR DISCOMFORTS,PAIN SCALE AND REPORTING EDUCATED;RESPIRATIONS EVEN AND UNLABORED ON O2 @ 2L VIA NC,CLEAR/DIMINISHED LUNG SOUNDS;ABDOMEN SOFT ON PALPATION AND ACTIVE IN ALL 4 QUADRANTS;STRONG PEDAL PULSES;SKIN INTACT;TELE MONITORING IN PLACE;#20G TO RAC FLUSHED AND PATENT,SITE APPEARS HEALTHY;#20G TO LAC INFUSING NS @ 20ML/HR,SITE APPEARS HEALTHY;ACCUCHECK 241, PT COVERED WITH SLIDING SCALE INSULIN PER ORDER;PT DENIES ANY ADDITIONAL NEEDS AND IS ENCOURAGED TO CALL FOR ASSISTANCE IF NEEDED;PT REMAINS IN AIR/CONTACT PRECAUTIONS DUE TO COVID19 DX;FALL PRECAUTIONS IN PLACE WITH BED IN THE LOWEST POSITION AND CALL LIGHT IN REACH;WILL CONTINUE TO MONITOR
[2021-03-06] MEDS ORDERED: DIGITEK0.25 M1 PO (08:30)
--- NOTE | 2021-03-06 10:04 | NUR ---
BP RE-CHECK 161/81
--- NOTE | 2021-03-06 10:30 | NUR ---
BP 180/94 HR 76, PT ASYMPTOMATIC. NOTIFIED AND NEW ORDERS RECEIVED;WILL CONTINUE TO MONITOR
--- NOTE | 2021-03-06 11:24 | NUR ---
AT BEDSIDE DISCUSSING POC.
--- NOTE | 2021-03-06 12:05 | NUR ---
BP RE-CHECK 160/80 HR 76
--- NOTE | 2021-03-06 12:35 | NUR ---
PT RESTING IN SEMI FOWLERS POSITION;RESPIRATIONS EVEN AND UNLABORED ON O2 @ 2L VIA NC;PT DENIES ANY CURRENT PAIN OR DISCOMFORTS,PAIN SCALE AND REPORTING EDUCATED;IV SITE TO CHARELEN AND WILLAM PATENT;TELE MONITORING IN PLACE;ACCUCHECK 302, PT WAS COVERED WITH SLIDING SCALE PER ORDER;PT DENIES ANY ADDITIONAL NEEDS AND IS ENCOURAGED TO CALL FOR ASSISTANCE IF NEEDED;FALL PRECAUTIONS IN PLACE;CALL LIGHT IN REACH;WILL CONTINUE TO MONITOR
[2021-03-06 14:50] LABS: INTERNATIONAL NORMALIZED RATIO 3.6 RATIO (0.7-1.3); PROTHROMBIN TIME 34.8 SECONDS (9.0-12.5)
--- NOTE | 2021-03-06 16:50 | NUR ---
PT RESTING IN SEMI FOWLERS POSITION;RESPIRATIONS EVEN AND UNLABORED ON O2 @ 2L VIA NC;PT DENIES ANY CURRENT PAIN OR NEEDS;TELE MONITORING IN PLACE;IV SITE PATENT INFUSING NS WITH EASE PER ORDER;ACCUCHECK 379, PT COVERED WITH SLIDING SCALE INSULIN PER ORDER;PT DENIES ANY ADDITIONAL NEEDS AND IS ENCOURAGED TO CALL FOR ASSISTANCE IF NEEDED;CALL LIGHT IN REACH;WILL CONTINUE TO MONITOR
--- NOTE | 2021-03-06 22:06 | NUR ---
PATIENT IS ALERT AND ORIENTED. ABLE TO MAKE NEEDS KNOWN. RESP NONLABORED. O2 VIA NC IN PLACE. REPORTS FEELING BETTER. LEVEMIR 15 U SC (ADDITIONAL DOSE) PER MD ORDER GIVEN FOR BS 516 AND RECHECKED BY LAB 467. PATIENT IS IN NO ACUTE DISTRESS. ASSESSMENT COMPLETED AND CHARTED. BED IN LOW POSITION. CALL LIGHT WITHIN REACH.
[2021-03-07] VITALS (10 sets, daily range): BP systolic 159–204; BP diastolic 76–101
--- NOTE | 2021-03-07 00:20 | NUR ---
HYDRALAZINE 10MG IV GIVEN FOR SB/P ABOVE 160. PATIENT RESTING QUIETLY. NO COMPLAINTS. FALL PRECAUTIONS MAINTAINED.
--- NOTE | 2021-03-07 04:09 | NUR ---
PATIENTS B/P STILL ELEVATED 187/82 AFTER HYDRALAZINE IV GIVEN. GAVE PATIENT IS A.M. METOPROLOL 50MG NOW TO HELP BRING DOWN BLOOD PRESSURE. PATIENT IS ASYMPTOMATIC UP HAS BEEN AWAKE MUCH OF THE NIGHT WORRING ABOUT HIS . PATIENT FEELS HE IS FEELING WELL ENOUGH TO BE DISCHARGED. TALKED WITH PATIENT AND ASKED IF HE WOULD SPEAK WITH THE DOCTORS THIS A.M. ABOUT BEING DISCHARGED. PATIENT'S STRESS MAY BE CONTRIBUTING TO ELEVATED B/P. FALL PRECAUTIONS MAINTAINED. VIBRAMYCINE IV HUNG AND INFUSING AT THIS TIME.
[2021-03-07 05:40] LABS: HEMATOCRIT 39.5 % (39.0-50.0); HEMOGLOBIN 13.4 g/dl (14.0-18.0); IMMATURE GRANULOCYTES 1.7 % (0.0-5.0); MEAN CELL VOLUME 95.4 fL CALC (80.0-100.0); MEAN CORPUSCULAR HGB 32.4 pG CALC (26.0-32.0); MEAN CORPUSCULAR HGB CONC 33.9 g/dL CAL (32.0-36.0); NEUT# 4.77 thou/uL (1.82-7.42); RED BLOOD COUNT 4.14 mill/uL (4.70-6.10)
[2021-03-07 06:09] LABS: ALBUMIN 3.2 g/dL (3.2-5.0); ALKALINE PHOSPHATASE 54 u/l (38-126); ANION GAP 14 (6-22 (CALC)); BILIRUBIN, TOTAL 0.4 mg/dL (0.0-1.4); BUN 28 mg/dL (8-23); BUN/CREATININE RATIO 35 (12-20 (CALC)); C-REACTIVE PROTEIN 4.2 mg/dL (0-0.9); CARBON DIOXIDE 25 mmol/l (22-30); CHLORIDE 105 mmol/l (95-108); CREATININE 0.8 mg/dL (0.7-1.3); GFR > 60 ML/MIN (>=60 (CALC)); GFR FOR AFR.AMER. > 60 ML/MIN (>=60 (CALC)); POTASSIUM 3.7 mmol/l (3.5-5.1); SGOT/AST 36 u/l (19-48); SODIUM 140 mmol/l (137-146); TOTAL PROTEIN 6.3 g/dL (6.3-8.2)
[2021-03-07 06:20] LABS: D-DIMER 0.75 mg/L (0.19-0.60)
[2021-03-07 06:33] LABS: INTERNATIONAL NORMALIZED RATIO 3.2 RATIO (0.7-1.3); PROTHROMBIN TIME 31.4 SECONDS (9.0-12.5)
--- NOTE | 2021-03-07 07:10 | NUR ---
REPORT RECEIVED FROM ELIZARN
--- NOTE | 2021-03-07 08:50 | NUR ---
PT RESTING IN SEMI FOWLERS POSITION,A&O X3;VS OBTAINED AND ASSESSMENT COMPLETED;PT DENIES ANY CURRENT PAIN OR DISCOMFORTS,PAIN SCALE AND REPORTING EDUCATED;PT NOTED TO BE ANXIOUS WHICH IS NOT LIKE HIM, PT REPORTS THAT HE IS WORRIED ABOUT HIS DUE TO BEING SICK AT HOME;PT RE-ASSURED AT THIS TIME;RESPIRATIONS EVEN AND UNLABORED ON O2 @ 2L VIA NC,DIMINISHED LUNG SOUNDS WITH NON-PRODUCTIVE COUGH;ABDOMEN SOFT ON PALPATION AND ACTIVE IN ALL 4 QUADRANTS;STRONG PEDAL PULSES;SKIN INTACT;TELE MONITORING IN PLACE;320G TO LAC INFUSING NS @ 20ML/HR,SITE APPEARS HEALTHY;[id number], NO COVERAGE NEEDED;PT REMAINS IN AIR/CONTACT PRECAUTIONS;PT DENIES ANY ADDITIONAL NEEDS AND IS ENCOURAGED TO CALL FOR ASSISTANCE IF NEEDED;FALL PRECAUTIONS IN PLACE WITH CALL LIGHT IN REACH;WILL CONTINUE TO MONITOR
--- NOTE | 2021-03-07 10:45 | NUR ---
PT CURRENT BP 203/83 HR 85, PT TO BE MEDICATED WITH PRN APRESOLINE 10MG SLOW IVP BY VIKRAM,RN
--- NOTE | 2021-03-07 11:19 | NUR ---
AT BEDSIDE DISCUSSING POC.
--- NOTE | 2021-03-07 11:50 | NUR ---
PT RESTING IN SEMI FOWLERS POSITION;RESPIRATIONS EVEN AND UNLABORED ON O2 @ 2L VIA NC;PT DENIES ANY CURRENT PAIN OR NEEDS;IV SITE PATENT INFUSING NS WITH EASE PER ORDER;BP RE-CHECK 173/81;ACCUCHECK 208,PT COVERED WITH SLIDING SCALE INSULIN PER ORDER;PT DENIES ANY ADDITIONAL NEEDS AND IS ENCOURAGED TO CALL FOR ASSISTANCE IF NEEDED;CALL LIGHT IN REACH;WILL CONTINUE TO MONITOR
--- NOTE | 2021-03-07 14:11 | NUR ---
PT MEDICATED WITH PRN XANAX 0.25MG PO AT THIS TIME FOR ANXIETY,WILL CONTINUE TO MONITOR FOR EFFECTIVENESS
--- NOTE | 2021-03-07 16:15 | NUR ---
PT RESTING IN RECLINER;RESPIRATIONS EVEN AND UNLABORED ON RA;PT DENIES ANY CURRENT PAIN OR DISCOMFORTS;TELE MONITORING IN PLACE;IV SITE PATENT INFUSING ABX WITH EASE;PT DENIES ANY ADDITIONAL NEEDS AND IS ENCOURAGED TO CALL FOR ASSISTANCE IF NEEDED;FALL PRECAUTIONS IN PLACE WITH CALL LIGHT IN REEACH;WILL CONTINUE TO MONITOR
--- NOTE | 2021-03-07 20:00 | NUR ---
PATIENT IS ALERT AND ORIENTED X3. ABLE TO MAKE NEEDS KNOWN. RESPIRATIONS EVEN AND UNLABORED. LUNG SOUNDS CTA. HR IRR. ON TELEMETRY RUNNING AFIB. BS+. DENIES PAIN. ASSESSMENT COMPLETED AND CHARTED. BED IN LOW POSITION. CALL LIGHT WITHIN REACH.
[2021-03-08 00:47] VITALS: BP 138/70
--- NOTE | 2021-03-08 01:58 | NUR ---
NO COMPLAINTS. NO CHANGED. RESPIRATIONS EVEN AND UNLABORED.
--- NOTE | 2021-03-08 04:52 | NUR ---
RESTING SEMI FOWLERS POSITION. NO COMPLAINTS. NO ACUTE DISTRESS NOTED.
[2021-03-08 05:09] VITALS: BP 145/79
[2021-03-08 05:33] LABS: HEMATOCRIT 35.6 % (39.0-50.0); HEMOGLOBIN 12.1 g/dl (14.0-18.0); IMMATURE GRANULOCYTES 1.2 % (0.0-5.0); MEAN CELL VOLUME 96.5 fL CALC (80.0-100.0); MEAN CORPUSCULAR HGB 32.8 pG CALC (26.0-32.0); NEUT# 3.24 thou/uL (1.82-7.42); RED BLOOD COUNT 3.69 mill/uL (4.70-6.10); RED CELL DISTRI WIDTH 12.9 % (11.5-15.5)
[2021-03-08 05:47] LABS: ALBUMIN 2.8 g/dL (3.2-5.0); ALKALINE PHOSPHATASE 48 u/l (38-126); ANION GAP 12 (6-22 (CALC)); BILIRUBIN, TOTAL 0.4 mg/dL (0.0-1.4); BUN 30 mg/dL (8-23); BUN/CREATININE RATIO 34 (12-20 (CALC)); CARBON DIOXIDE 24 mmol/l (22-30); CHLORIDE 106 mmol/l (95-108); CREATININE 0.9 mg/dL (0.7-1.3); GFR > 60 ML/MIN (>=60 (CALC)); GFR FOR AFR.AMER. > 60 ML/MIN (>=60 (CALC)); SGOT/AST 28 u/l (19-48); SODIUM 138 mmol/l (137-146); TOTAL PROTEIN 5.6 g/dL (6.3-8.2)
[2021-03-08 07:30] VITALS: BP 145/72
--- NOTE | 2021-03-08 07:30 | NUR ---
PATIENT LAYING IN BED AT THIS TIME. O2 ON 2 LITERS SPO2 IS 94%. PATIENT EXPRESSING DESIRE TO GO HOME TODAY AND STATES HE "FEELS GREAT". LUNG FIELD ARE CLEAR, FULL STACK SOFTWARE ENGINEER DONE AT THIS TIME SEE INTERVENTIONS. TELE MONITOR IN PLACE AND BEING MONITORED BY ED. SIDERAILS ARE UP X 2 CALL LIGHT WITHIN REACH.
--- NOTE | 2021-03-08 10:16 | NUR ---
SIX MINUTE WALK TEST PREFORMED AT THIS TIME. O2 REMOVED FOR 30 MIN. SPO2 WAS 92%. PATIENT WALKED WITHOUT O2 ON FOR 5 MIN. AND SPO2 WAS 85%. O2 PLACED ON 2 LITERS AND SPO2 RESULTED 91% AND FINAL RESTING SPO2 WITH O2 ON 2L IS 93%. RESULTS SHARED WITH ALESHIA QUEZADA.
[2021-03-08 11:14] VITALS: BP 153/72
--- NOTE | 2021-03-08 11:31 | NUR ---
PATIETN SITTING UP ON BEDSIDE AT THIS TIME. PATIENT DENIES ANY PAIN OR NEEDS AND SHORTNESS OF BREATH. 02 REMAINS ON AT 2L. SIDERAILS ARE UP X 2 CALL LIGHT WITHIN REACH. PATIENT EXPRESSES WANT TO GO HOME. PATIENT GIVE EDUCATION ON REDESIVIR COMPLETIONS AND THE BENEFITS OF RECEIVING ALL DOES. PATIENT VERBALIZED UNDERSTANDING OF THIS EDUCATION. WILL CONTINUE TO MONITOR PATIENT
[2021-03-08 12:13] LABS: INTERNATIONAL NORMALIZED RATIO 2.5 RATIO (0.7-1.3); PROTHROMBIN TIME 24.7 SECONDS (9.0-12.5)
[2021-03-08] MEDS ORDERED: DOXYCYCL HYC100 MG PO (14:04)
[2021-03-08] MEDS ORDERED: OXY1 (14:05)
[2021-03-08] MEDS ORDERED: DEXAMETHASON6 MG PO (14:05)
[2021-03-08 15:05] VITALS: BP 153/77
--- NOTE | 2021-03-08 16:11 | NUR ---
Discharge instructions given. Patient verbalizes understanding of same. Discharged in stable condition via Wheelchair to *Other with family. All belongings sent with pt. PATIENT WENT HOME ON PROTOBLE O2 AND WITH [facility] ORDERS.
== END 2021-03-08 16:18 | disposition home health service (06) | DRG 177 ==
LOC: ED 12:27 → ED-I 14:33 → ED 14:48 → MS2 14:49
PROVIDERS: Hospitalist; Nurse Practitioner; ADMIT Internal Medicine; ATTEND Internal Medicine
PROC: XW033E5 Introduction of Remdesivir Anti-infective into Peripheral Vein, Percutaneous Approach, New Technology Group 5 (ICD-10-PCS; principal; 2021-03-05)
DX: U07.1 COVID-19 (principal); J12.82 Pneumonia due to coronavirus disease 2019; I48.20 Chronic atrial fibrillation, unspecified; J44.0 Chronic obstructive pulmonary disease with (acute) lower respiratory infection; R09.02 Hypoxemia; I10 Essential (primary) hypertension; E11.9 Type 2 diabetes mellitus without complications; I25.10 Atherosclerotic heart disease of native coronary artery without angina pectoris; E78.5 Hyperlipidemia, unspecified; E03.9 Hypothyroidism, unspecified; R79.1 Abnormal coagulation profile; T45.515A Adverse effect of anticoagulants, initial encounter; F41.9 Anxiety disorder, unspecified; Z79.01 Long term (current) use of anticoagulants; Z79.84 Long term (current) use of oral hypoglycemic drugs; Z87.891 Personal history of nicotine dependence
CPT/HCPCS: G0378; Q9967

== ENCOUNTER 2021-05-31 01:21 | Inpatient (IN) | payer MEDICARE, OTHER ==
[2021-05-31] VITALS (9 sets, daily range): BP systolic 122–147; BP diastolic 56–77
[~2021-05-31] VITALS: Ht 185.4 cm; Wt 95.0 kg
[~2021-05-31 01:21] MED LIST changes: +DIGITEK0.25 M1 PO; +OXY1
[2021-05-31 02:02] LABS: HEMATOCRIT 40.8 % (39.0-50.0); HEMOGLOBIN 13.6 g/dl (14.0-18.0); IMMATURE GRANULOCYTES 0.3 % (0.0-5.0); MEAN CELL VOLUME 94.2 fL CALC (80.0-100.0); MEAN CORPUSCULAR HGB 31.4 pG CALC (26.0-32.0); MEAN CORPUSCULAR HGB CONC 33.3 g/dL CAL (32.0-36.0); NEUT# 8.66 thou/uL (1.82-7.42); RED BLOOD COUNT 4.33 mill/uL (4.70-6.10); RED CELL DISTRI WIDTH 13.6 % (11.5-15.5)
[2021-05-31 02:20] LABS: ALKALINE PHOSPHATASE 55 u/l (38-126); BUN 21 mg/dL (8-23); BUN/CREATININE RATIO 16 (12-20 (CALC)); CHLORIDE 106 mmol/l (95-108); CREATININE 1.3 mg/dL (0.7-1.3); GFR 53 ML/MIN (>=60 (CALC)); GFR FOR AFR.AMER. > 60 ML/MIN (>=60 (CALC)); LIPASE 359 u/l (23-300); SGOT/AST 22 u/l (19-48); SODIUM 138 mmol/l (137-146)
[2021-05-31 02:22] LABS: ACT PARTIAL THROMBO TIME 29.9 SECONDS (20.0-32.5); ALBUMIN 4.1 g/dL (3.2-5.0); ANION GAP 19 (6-22 (CALC)); BILIRUBIN, TOTAL 0.7 mg/dL (0.0-1.4); CARBON DIOXIDE 17 mmol/l (22-30); INTERNATIONAL NORMALIZED RATIO 2.6 RATIO (0.7-1.3); MAGNESIUM 1.4 mg/dL (1.6-2.3); PROTHROMBIN TIME 25.7 SECONDS (9.0-12.5); TOTAL PROTEIN 7.1 g/dL (6.3-8.2)
[2021-05-31] MEDS ORDERED: LOPRESSOR50 M1 PO (02:25)
[2021-05-31] MEDS ORDERED: COQ-10100 MG PO (02:27)
[2021-05-31] MEDS ORDERED: OMEGA-31000 MG PO (02:28)
[2021-05-31 09:39] LABS: ALBUMIN 3.3 g/dL (3.2-5.0); ALKALINE PHOSPHATASE 43 u/l (38-126); ANION GAP 16 (6-22 (CALC)); BILIRUBIN, TOTAL 0.6 mg/dL (0.0-1.4); BUN 24 mg/dL (8-23); BUN/CREATININE RATIO 18 (12-20 (CALC)); CARBON DIOXIDE 18 mmol/l (22-30); CHLORIDE 110 mmol/l (95-108); CREATININE 1.3 mg/dL (0.7-1.3); GFR 53 ML/MIN (>=60 (CALC)); GFR FOR AFR.AMER. > 60 ML/MIN (>=60 (CALC)); POTASSIUM 4.4 mmol/l (3.5-5.1); SGOT/AST 26 u/l (19-48); SODIUM 139 mmol/l (137-146)
[2021-05-31 10:14] LABS: INTERNATIONAL NORMALIZED RATIO 2.4 RATIO (0.7-1.3); PROTHROMBIN TIME 23.5 SECONDS (9.0-12.5)
[2021-05-31 10:15] LABS: HEMATOCRIT 34.5 % (39.0-50.0); HEMOGLOBIN 11.7 g/dl (14.0-18.0); IMMATURE GRANULOCYTES 0.3 % (0.0-5.0); MEAN CELL VOLUME 94.3 fL CALC (80.0-100.0); MEAN CORPUSCULAR HGB CONC 33.9 g/dL CAL (32.0-36.0); NEUT# 7.82 thou/uL (1.82-7.42); RED BLOOD COUNT 3.66 mill/uL (4.70-6.10)
[2021-05-31 10:26] LABS: URINE BILIRUBIN - DIPSTICK NEGATIVE (NEGATIVE); URINE BLOOD DIPSTICK TRACE-INTACT (NEGATIVE); URINE COLOR YELLOW; URINE GLUCOSE - DIPSTICK NEGATIVE (NEGATIVE); URINE KETONE NEGATIVE (NEGATIVE); URINE LEUK ESTERASE NEGATIVE (NEGATIVE); URINE PROTEIN - DIPSTICK NEGATIVE (NEG-TRACE); URINE SPECIFIC GRAVITY 1.025; URINE UROBILINOGEN - DIPSTICK 0.2 E.U./dL (0.2)
[2021-05-31 10:28] LABS: URINE NITRITE - DIPSTICK NEGATIVE (Negative)
== END 2021-05-31 16:00 | disposition short-term general hospital (02) | DRG 280 ==
LOC: ED 01:21 → ED-I 04:20 → ED 04:37 → ICU 04:38
PROVIDERS: ADMIT Hospitalist; ATTEND Hospitalist
PROC: 5A09357 Assistance with Respiratory Ventilation, Less than 24 Consecutive Hours, Continuous Positive Airway Pressure (ICD-10-PCS; principal; 2021-05-31)
DX: I21.4 Non-ST elevation (NSTEMI) myocardial infarction (principal); J18.9 Pneumonia, unspecified organism; J96.01 Acute respiratory failure with hypoxia; I48.20 Chronic atrial fibrillation, unspecified; J44.0 Chronic obstructive pulmonary disease with (acute) lower respiratory infection; E87.2 Acidosis; I10 Essential (primary) hypertension; E11.9 Type 2 diabetes mellitus without complications; E78.5 Hyperlipidemia, unspecified; E83.42 Hypomagnesemia; E03.9 Hypothyroidism, unspecified; Z79.01 Long term (current) use of anticoagulants; Z79.84 Long term (current) use of oral hypoglycemic drugs; Z20.822 Contact with and (suspected) exposure to COVID-19; Z86.16 Personal history of COVID-19; Z87.891 Personal history of nicotine dependence
CPT/HCPCS: J1644; J3475; Q9967

== ENCOUNTER 2022-05-02 21:15 | Emergency (ER) | payer MEDICARE, OTHER ==
[~2022-05-02] VITALS: Ht 185.4 cm; Wt 92.7 kg
[2022-05-02] VITALS (10 sets, daily range): BP systolic 138–162; BP diastolic 40–74
[~2022-05-02 21:15] MED LIST changes: +COQ-10100 MG PO; +LOPRESSOR50 M1 PO; +OMEGA-31000 MG PO
[2022-05-02 22:20] LABS: HEMATOCRIT 43.5 % (39.0-50.0); HEMOGLOBIN 14.4 g/dl (14.0-18.0); IMMATURE GRANULOCYTES 0.7 % (0.0-5.0); MEAN CELL VOLUME 96.7 fL CALC (80.0-100.0); MEAN CORPUSCULAR HGB CONC 33.1 g/dL CAL (32.0-36.0); NEUT# 3.7 thou/uL (1.82-7.42); RED BLOOD COUNT 4.5 mill/uL (4.70-6.10); RED CELL DISTRI WIDTH 13.8 % (11.5-15.5)
[2022-05-02] MEDS ORDERED: FENOFIBRATE145 MG PO (22:31)
[2022-05-02 22:32] LABS: INTERNATIONAL NORMALIZED RATIO 2.9 RATIO (0.7-1.3); PROTHROMBIN TIME 27.8 SECONDS (9.0-12.5)
[2022-05-02 22:35] LABS: ALBUMIN 4.8 g/dL (3.2-5.0); BILIRUBIN, TOTAL 0.4 mg/dL (0.0-1.4); CREATININE 1.6 mg/dL (0.7-1.3); POTASSIUM 4.4 mmol/l (3.5-5.1); TOTAL PROTEIN 8.2 g/dL (6.3-8.2)
[2022-05-02 22:39] LABS: DIGOXIN 0.8 ng/mL (0.8-2.0)
[2022-05-02] MEDS ORDERED: TAM75CAP PO (23:19)
== END 2022-05-03 00:01 | disposition home or self-care (01) ==
LOC: ED 21:15
PROVIDERS: Emergency Medicine
DX: J11.1 Influenza due to unidentified influenza virus with other respiratory manifestations (principal); E11.649 Type 2 diabetes mellitus with hypoglycemia without coma; I10 Essential (primary) hypertension; I48.91 Unspecified atrial fibrillation; E78.00 Pure hypercholesterolemia, unspecified; F17.200 Nicotine dependence, unspecified, uncomplicated; Z86.16 Personal history of COVID-19; Z79.84 Long term (current) use of oral hypoglycemic drugs; Z20.822 Contact with and (suspected) exposure to COVID-19